=== PATIENT | female | born 1985 | race Two or more races ===

== ENCOUNTER 2023-12-25 14:00 | Emergency (ER) | payer MEDICAID ==
[~2023-12-25] VITALS: Ht 162.6 cm; Wt 88.6 kg
[2023-12-25 15:03] LABS: Basophils # (auto) 0.1 10 ^3/uL (0-0.2); Basophils % (auto) 0.7 % (0.0-2.0); Eosinophils # (auto) 0 10 ^3/uL (0-0.8); Eosinophils % (auto) 0.4 % (0.0-7.0); Hematocrit 32.7 % (36.0-46.0); Lymphocytes # (auto) 0.8 10 ^3/uL (0.4-5.4); Lymphocytes % (auto) 7.9 % (10.0-50.0); Mean Corpuscular Hemoglobin 27.8 pg (28.0-32.0); Mean Corpuscular Hgb Conc. 33.6 g/dL (32.0-36.0); Mean Corpuscular Volume 82.7 fL (80.0-100.0); Monocytes # (auto) 0.6 10 ^3/uL (0-1.3); Monocytes % (auto) 5.5 % (0.0-12.0); Neutrophils # (auto) 9.1 10 ^3/uL (1.6-8.6); Neutrophils % (auto) 85.5 % (37.0-80.0); Platelet Count (auto) 297 10^3/uL (140-450); Red Blood Cells 3.95 10^6/uL (4.0-5.20); Red Cell Distribution Width 15.9 % (11.8-14.3); White Blood Cell 10.7 10^3/uL (4.4-10.8)
[2023-12-25] MEDS: SODIUM CHLORIDE 0.9% 500 ML IVB ONE (15:11)
[2023-12-25 15:12] VITALS: BP 98/65; PULSE 88; RESP 15; TEMP 97; O2SAT 100
[2023-12-25] MEDS: ONDANSETRON HCL 4 MG/2 ML VIAL IV ONE (15:12)
[2023-12-25 15:29] LABS: Alanine Aminotransferase 15 U/L (7-40); Albumin 4.4 g/dL (3.2-4.8); Alkaline Phosphatase 61 U/L (46-116); Anion Gap 4 (5-15); Aspartate Aminotransferase 14 U/L (13-40); BUN/Creatinine Ratio 17.5 (10.0-20.0); Bilirubin, Total 0.4 mg/dL (0.2-1.0); Blood Urea Nitrogen 11 mg/dL (9-23); Calcium 9.2 mg/dL (8.7-10.4); Carbon Dioxide 25 mmol/L (20-30); Chloride 109 mmol/L (98-107); Glucose 121 mg/dL (74-106); Lipase 32 U/L (12-53); Potassium 3.9 mmol/L (3.5-5.1); Sodium 138 mmol/L (136-145); Total Protein 6.6 g/dL (5.7-8.2)
[2023-12-25] MEDS: IOHEXOL 300 MG/ML 100ML BOTTLE IJ ONE (15:48)
[2023-12-25] MEDS: KETOROLAC TROMETH 30 MG/ML 1ML VIAL IV ONE (15:54)
[2023-12-25 17:06] LABS: Anisocytosis Slight; Platelet Estimate Adequate
[2023-12-25 17:09] LABS: Urine Bacteria None Seen /hpf (None Seen)
[2023-12-25] MEDS ORDERED: [UNRECOGNIZED DRUG - CODE] PO (17:24)
[2023-12-25] MEDS ORDERED: ZOFR4T PO (17:24)
[2023-12-25] MEDS ORDERED: TRAM50TA2 PO ×2 (17:24→17:26)
[2023-12-25 17:37] LABS: Urine Blood 2+ /uL (Negative); Urine Clarity Clear (Clear); Urine Color Yellow (Yellow); Urine Mucus FEW (None Seen); Urine Protein, UAD TRACE (Negative); Urine Urobilinogen Normal (Negative); Urine WBC 4 /hpf (0 - 5)
[2023-12-25 17:41] LABS: Urine Specific Gravity > 1.050 (1.001-1.035)
[2023-12-25] MEDS: traMADol HCL 50 MG TAB PO ONE (17:45)
== END 2023-12-25 18:33 | disposition home or self-care (01) ==
LOC: ER 14:00
DX: N85.8 Other specified noninflammatory disorders of uterus (principal); R10.2 Pelvic and perineal pain; R10.84 Generalized abdominal pain; Z79.899 Other long term (current) drug therapy
CPT/HCPCS: 36415; 74177; 80053; 81001; 82962; 83605; 83690; 84702; 85025; 86850; 86900; 86901; 96361; 96374; 96375; 99285; J1885; J2405; J7040; Q9967